=== PATIENT | female | born 1950 | race Caucasian/White ===

== ENCOUNTER 2024-10-10 13:31 | Outpatient (AMB) | payer OTHER, MEDICARE, SELFPAY ==
--- OUTSIDE RECORDS SUMMARY | 2024-10-10 13:36 | XMS_ITS | Continuity of Care Document ---
Author Organization [facility] Address [address] [address]- Care Team Providers Care Osd Clerk Name Role Phone Dena Gipson MD Primary Care Physician [phone] [id number] Date(s): 08/26/24 - 09/25/24 [facility] [address], [place] [address] Encounter Type: Triage Allergies, Adverse Reactions, Alerts Substance Criticality Severity Reaction Reaction Severity Status busPIRone Unknown Active lisinopril Persistent cough Ac tive BuSpar Dividose chest pain,d abrahan, headache Buspar dividose 15mg tablet Active Immunizations Given and Recorded Vaccine Date Status Refusal Reason influenza virus vaccine, inactivated 1 08/02/24 Gi marilee influenza virus vaccine, inactivated 08/12/23 Andres rded influenza virus vaccine, inactivated 07/12/21 Andres rded influenza virus vaccine, inactivated 08/10/20 Andres rded influenza virus vaccine, inactivated 2 07/28/18 Re corded influenza virus vaccine, inactivated 3 07/28/18 Re corded influenza virus vaccine, inactivated 4 07/31/17 Gi marilee influenza virus vaccine, inactivated 5 08/07/16 Gi marilee influenza virus vaccine, inactivated 08/08/15 Give n influenza virus vaccine, inactivated 07/20/14 Give n influenza virus vaccine, inactivated 08/11/13 Give n influenza virus vaccine, inactivated 6 08/04/12 Gi marilee influenza virus vaccine, inactivated 7 07/24/10 Gi marilee influenza virus vaccine, inactivated 8 07/20/09 Gi marilee RSV vaccine preF3, recombinant 07/08/24 Recorded SARS-CoV-2(COVID-19)mRNA-LNP vac([id number]) 08/18/23 Recorded Hepatitis A-Hepatitis B Vaccine 08/11/21 Recorded Hepatitis A-Hepatitis B Vaccine 07/12/21 Recorded pneumococcal 23-valent vaccine 9 07/11/21 Given tetanus-diphtheria toxoids (Td) 10 06/28/21 Given tetanus-diphtheria toxoids (Td) 11 10/08/11 Given tetanus-diphtheria toxoids (Td) 11/12/01 Given SARS-CoV-2 (COVID-19) mRNA-1273 vaccine 02/24/21 R ecorded SARS-CoV-2 (COVID-19) mRNA-1273 vaccine 12 01/27/21 Recorded zoster vaccine, inactivated 13 12/31/20 Recorded zoster vaccine, inactivated 08/10/20 Recorded Influenza Virus Vaccine (oldterm) 07/19/19 Recorde d Influenza Virus Vaccine (oldterm) 14 08/19/07 Give n Influenza Virus Vaccine (oldterm) 15 08/24/06 Give n pneumococcal 13-valent vaccine 16 04/15/18 Given Influenza Inactive (IM) (oldterm) 17 10/08/11 Give n Influenza Inactive (IM) (oldterm) 18 08/16/08 Give n Pneumovax 23 (oldterm) 19 10/08/11 Given influ virus vac, H1N1, inactive(oldterm) 08/27/09 Given Influenza Vaccine (oldterm) 08/11/05 Given Influenza Vaccine (oldterm) 08/30/04 Given Influenza Vaccine (oldterm) 08/03/02 Given Influenza Vaccine (oldterm) 08/23/01 Given Influenza Vaccine (oldterm) 08/21/00 Given Influenza Vaccine (oldterm) 09/27/99 Given Tetanus Toxoid Vaccine (oldterm) 20 11/16/01 Given 1Result Comment: [facility] 13217-028-44 2Result Comment: [[facility]/2018[facility] 3Result Comment: [08/09/2018] [facility] 4Result Comment: [07/31/2017] [facility] [id number] 5Result Comment: [08/07/2016] given w/out incident waiver signed 6Admin Note: VIS dated 04/19/12 7Admin Note: vis 05/28/10 8Admin Note: VIS GIVEN, 05/29/2009 9Result Comment: [facility] 4438-5607-03 Pt tolerated vaccine without incident...[place] 10Result Comment: [facility] [address]-8 Pt tolerated vaccine without incident..[place] 11Admin Note: VIS 09/05/08 12Result Comment: Done at [facility] 13Result Comment: Administered at [facility] 14Admin Note: VIS GIVEN 05/03/2007 15Admin Note: vis given 04/17/06 16Result Comment: [04/15/2018] [facility] [id number] 17Admin Note: VIS 18Admin Note: vis 2007- given 19Admin Note: VIS 02/01/09 20Admin Note: PER DR CHRISTY Medications Airsupra 90 mcg-80 mcg/inh inhalation aerosol 0 Refills, Maintenance, 08/02/24 11:07:00 AM EDT, Partial fill upon patient request if the prescription is for a schedule II opioid drug. Start Date: 08/02/24 Status: Ordered Repeat number: 1 amoxicillin-clavulanate 500 mg-125 mg oral tablet 14 each, 0 Refill(s), TAKE 1 TABLET BY MOUTH TWICE A DAY, 0 Refills, 09/19/24 9:59:00 AM EST, Partial fill upon patient request if the prescription is for a schedule II opioid drug. Start Date: 09/19/24 Status: Ordered Repeat number: 1 aspirin 81 mg oral delayed release tablet 81 mg, 1, tablet, By Mouth, Daily, # 30 tablet, Refills 0, Maintenance, 07/13/22 11:58:00 AM EDT, Partial fill upon patient request if the prescription is for a schedule II opioid drug. Start Date: 07/13/22 Status: Ordered Quantity: 30.0 Unit: tablet Repeat number: 1 biotin 1000 mcg oral tablet 1 tablet = 1,000 mcg, By Mouth, Daily, # 30 tablet, 0 Refills, Maintenance, 07/13/22 11:59:00 AM EDT, Tablet, Partial fill upon patient request if the prescription is for a schedule II opioid drug. Start Date: 07/13/22 Status: Ordered Quantity: 30.0 Unit: tablet Repeat number: 1 CALCIUM CITRATE D3 MAX TABLETS TAKE 2 TABLETS BY MOUTH TWICE DAILY Start Date: 07/13/22 Status: Ordered Repeat number: 1 diclofenac 1% topical gel See Instructions, APPLY TOPICALLY TO THE AFFECTED AREA FOUR TIMES DAILY FOR 14 DAYS. NOT TO EXCEED 16 GM DAILY/ 1 JOINT OF LOWER EXTREMITIES, # 100 Gm, 0 Refills, Maintenance, 03/18/24 5:59:00 PM EDT,Community, [facility], 7, APPLY TOPICALLY TO THE AFFECTED AREA FOUR TIMES DAILY FOR 14 DAYS. NOT TO EXCEED 16 GM DAILY/ 1 JOINT OF LOWER EXTREMITIES, 160.02, cm, 09/30/23 11:50:00 EST, Height, 84.4, kg, 09/30/23 11:50:00 EST, Dry Weight Start Date: 03/18/24 Status: Ordered Quantity: 100.0 Unit: g Repeat number: 1 docusate sodium 100 mg oral capsule 1 capsule, By Mouth, 2 times a day, # 180 capsule, 1 Refills, Maintenance, 12/03/23 5:02:00 PM EST, [facility]/pharmacy #[id number], 160.02, cm, 09/30/23 11:50:00 EST, Height, 84.4, kg, 09/30/23 11:50:00 EST, Dry Weight Start Date: 12/03/23 Stop Date: 05/31/24 Status: Ordered Quantity: 180.0 Unit: capsule Repeat number: 2 famotidine 20 mg oral tablet 20 mg, 1, tablet, By Mouth, 2 times a day, # 180 tablet, Refills 0, Maintenance, 12/03/23 5:03:00 PMEST, Partial fill upon patient request if the prescription is for a schedule II opioid drug. Start Date: 12/03/23 Status: Ordered Quantity: 180.0 Unit: tablet Repeat number: 1 Flonase 50 mcg/inh nasal spray 1 sprays, Nares, Both, 2 times a day, # 16 Gm, 0 Refills, Maintenance, 09/10/22 3:52:00 PM EST, Nasal [place], [facility]/pharmacy #[id number], Partial fill upon patient request if the prescription is for a schedule II opioid drug., 1 sprays Nares, Both 2 times a day,x14 days, 160, cm, 09/10/22 15:25:00 EST, Height, 84, kg, 08/30/21 11:34:00 EST, Dry Weight Start Date: 09/10/22 Stop Date: 09/24/22 Status: Ordered Quantity: 16.0 Unit: g Repeat number: 1 fluticasone CFC free 110 mcg/inh inhalation aerosol 0 Refills, Maintenance, 08/02/24 11:07:00 AM EDT, Partial fill upon patient request if the prescription is for a schedule II opioid drug. Start Date: 08/02/24 Status: Ordered Repeat number: 1 Juxtafit Knee-high Compression Garments(bilateral, left, right) with 2 pairs of liners Juxtafit Knee-high Compression Garments(bilateral, left, right) with 2 pairs of liners, See Instructions, # 1 kit, Refills 0, Tot. Refills 0, Maintenance, as directed, 09/19/24 10:21:00 AM EST, Supply Start Date: 09/19/24 Status: Ordered Quantity: 1.0 Unit: kit Repeat number: 1 Indication: Lymphedema, not elsewhere classified levothyroxine 125 mcg (0.125 mg) oral tablet 1 tablet, By Mouth, Daily, # 90 tablet, 1 Refills, Maintenance, 08/22/24 9:50:00 AM EST, [facility]/pharmacy #[id number], 160.02, cm, 08/02/24 10:22:00 EDT, Height, 94.6, kg, 08/02/24 10:22:00 EDT, Dry Weight Start Date: 08/22/24 Status: Ordered Quantity: 90.0 Unit: tablet Repeat number: 2 losartan 100 mg oral tablet 60 each, 0 Refill(s), 0 Refills, 09/19/24 9:52:00 AM EST, Partial fill upon patient request if the prescription is for a schedule II opioid drug. Start Date: 09/19/24 Status: Ordered Repeat number: 1 Melatonin 3 mg oral tablet 2 tablet = 6 mg, By Mouth, Daily at bedtime, 0 Refills, Maintenance, 02/28/22 12:13:00 PM EDT, Partial fill upon patient request if the prescription is for a schedule II opioid drug. Start Date: 02/28/22 Status: Ordered Repeat number: 1 metFORMIN 500 mg oral tablet 1 tablet, By Mouth, Daily, # 90 tablet, 1 Refills, Maintenance, 05/20/24 7:13:00 AM EDT, [id number], 160.02, cm, 04/20/24 9:54:00 EDT, Height, 90, kg, 04/20/24 9:54:00 EDT, Dry Weight Start Date: 05/20/24 Status: Ordered Quantity: 90.0 Unit: tablet Repeat number: 1 montelukast 10 mg oral tablet 1, tablet, By Mouth, Daily, # 90 tablet, Refills 1, Maintenance, 06/02/24 8:22:00 AM EDT, Route to Pharmacy Electronically, [id number], 160.02, cm, 04/20/24 9:54:00 EDT, Height, 90, kg, 04/20/24 9:54:00 EDT, Dry Weight Start Date: 06/02/24 Status: Ordered Quantity: 90.0 Unit: tablet Repeat number: 1 mycophenolic acid 360 mg oral delayed release tablet 1 tablet = 360 mg, By Mouth, 2 times a day, 0 Refills, Maintenance, 07/13/22 12:17:00 PM EDT, Partial fill upon patient request if the prescription is for a schedule II opioid drug. Start Date: 07/13/22 Status: Ordered Repeat number: 1 rosuvastatin 20 mg oral tablet 1 tablet = 20 mg, By Mouth, Daily, # 90 tablet, 0 Refills, Maintenance, 03/21/22 12:25:00 PM EDT, Tablet, Partial fill upon patient request if the prescription is for a schedule II opioid drug. Start Date: 03/21/22 Status: Ordered Quantity: 90.0 Unit: tablet Repeat number: 1 tacrolimus 1 mg oral capsule 0.5 capsule = 0.5 mg, By Mouth, Every 12 hours, # 180 capsule, 0 Refills, Maintenance, 07/13/22 11:56:00 AM EDT, Capsule, Partial fill upon patient request if the prescription is for a schedule II opioid drug. Start Date: 07/13/22 Status: Ordered Quantity: 180.0 Unit: capsule Repeat number: 1 Tiadylt ER 360 mg/24 hours oral capsule, extended release 1 capsule = 360 mg, By Mouth, Daily, 0 Refills, Maintenance, 02/28/22 12:13:00 PM EDT, Partial fill upon patient request if the prescription is for a schedule II opioid drug. Start Date: 02/28/22 Status: Ordered Repeat number: 1 valganciclovir 450 mg oral tablet 450 mg, 1, tablet, By Mouth, 2 times a day with meals, Refills 0, Maintenance, 11/12/22 5:09:00 PM EST, Partial fill upon patient request if the prescription is for a schedule II opioid drug. Start Date: 11/12/22 Status: Ordered Repeat number: 1 venlafaxine 75 mg oral tablet 1 tablet = 75 mg, By Mouth, Daily, # 90 tablet, 1 Refills, Maintenance, 09/24/24 12:22:00 PM EST, [facility]/pharmacy #[id number], switched from 2x37.5 mg, 160.02, cm, 08/02/24 10:22:00 EDT, Height, 94.6, kg, 08/02/24 10:22:00 EDT, Dry Weight Start Date: 09/24/24 Stop Date: 03/23/25 Status: Ordered Quantity: 90.0 Unit: tablet Repeat number: 2 Vitamin C 500 mg oral tablet 1 tablet = 500 mg, By Mouth, 2 times a day, 0 Refills, Maintenance, 02/28/22 12:13:00 PM EDT, Partial fill upon patient request if the prescription is for a schedule II opioid drug. Start Date: 02/28/22 Status: Ordered Repeat number: 1 vitamin E 400 iu oral capsule 1 capsule = 400 International_Units, By Mouth, Daily, # 30 capsule, 0 Refills, Maintenance, 07/13/2212:02:00 PM EDT, Capsule, Partial fill upon patient request if the prescription is for a schedule II opioid drug. 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 Confirmed Active Chronic insomnia Confirmed Active Degenerative disc disease, lumbar Confirmed Active Degenerative myopia Confirmed Active Gastroparesis Confirmed Active S/P orthotopic heart transplant Confirmed Active HFrEF (heart failure with reduced ejection fraction) Confirmed Active Hip pain Confirmed Active Hyperlipidemia Confirmed Active Hypothyroidism Confirmed Active Lower back pain Confirmed Active Osteopenia Confirmed Active Primary idiopathic cardiomyopathy 4, 5, 6, 7, 8, 9 Confirmed Active Severe obesity (BMI 35.0-39.9) with comorbidity Confirmed Active Complex sleep apnea syndrome 10, 11, 12 Confirmed Active 1MRI of brain had a few nonmspecific subcentimeter foci of T2 prolongation in left cerebral white matter 2seeing Dr Morgan of neuro, nl brain MRI 06/12/[address] Singh 4cardiac MRI done 10/28/13 to eval ? scar- EF 36%,LV with m ild- mod dilation, no focal wall motion abnormality, low nl to mildly thinned LV, no evidence of infarct 5nuclear stress test 08/10/13 showed no ischemia, EF44%, scar on inferior wall, mid ventricle to apex 6echo 05/25/14- ischemic cardiomyopathy, ER 40-45%, distal septal and apical hypokinesis, mild MR, tr TR, and tr pulmonic valve regurg 7echo 01/2013- EF 40-50%, no sig change vs 12/2007/- nl nuclear stress test, LVEF 50%(pt admitted with CP) 9echo 12/24-LVEF 50-55%, tr MR and TR, LV mildly dilated, no LVH, no wall motion abnormality, no diastolic dysfunction. prior echo 11/23 with LVEF 20% cardiac cath 04/21-no CAD 10having problems with mask, delclining f/u at sleep clinic(see january [facility] note) 11has complex sleep apnea, referred to sleep clinic 12titration study 09/12/14 Social History Social History Type Response Smoking Status Never smoker; Tobacc o user in household: Yes entered on: 04/02/18 Sex Sex Representation Female (finding) Patient Care team information Care Team Personnel Name: Jasmyne Cueva RN Position: S RN Member Role: Primary Care Nurse Name: Ericka Salcedo RN Position: [facility] RN Member Role: Primary Care Nurse Name: Katrin Brian Position: [facility] RN Supv Member Role: Primary Care Nurse Name: Raissa Garcia NP Position: [facility] Associate Professional Member Role: Lifetime Consulting Provider Address: [address] [facility] [place] [address]- [place] [employer]: Name: Dena Gipson MD Position: [facility] Physician - Primary Care Member Role: PCP Address: [address] [facility] [place] [address]- [place] [employer]: Name: Hilda Levine RN Position: [facility] Treasury Management Sales Consultant Member Role: Primary Care Nurse Name: Mae Kaiser RN Position: [facility] RN Member Role: Primary Care Nurse Name: Jerrica Salinas RN Position: [facility] RN Member Role: Primary Care Nurse Name: Gerardo Petty RN Position: [facility] RN Member Role: Primary Care Nurse Name: Kamini Membreno RN Position: [facility] RN Member Role: Primary Care Nurse Name: Matthias Enamorado MD Position: [facility] Outreach Member Role: Lifetime Consulting Physician Address: [address] [facility] [place] [place] [address]- [place] Tele[employer]: Name: Kathy Rodney RN Position: [facility] SN RN Member Role: Primary Care Nurse Name: Huma Rogers RN Position: [facility] RN Member Role: Primary Care Nurse Name: Nirali Goodwin RN Position: [facility] RN Member Role: Primary Care Nurse Name: Ruth Murguia RN Position: [facility] RN Member Role: Primary Care Nurse Care Team Related Persons Name: GEE RADFORD Name: JONATHAN RADFORD Insurance Providers Guarantor name: ANTONIO RADFORD Health Plan Information #: 1 Payer: NA Member Number: NA Policy Number: NA Group Number: NA
--- OUTSIDE RECORDS SUMMARY | 2024-10-10 13:36 | XMS_ITS | Continuity of Care Document ---
Author Organization [facility] Address [address] [address]- Care Team Providers Care Freight Trucker Name Role Phone Dena Gipson MD Primary Care Physician [id number] Date(s): 08/24/24 - 09/23/24 [facility] [address] [place], [place] [address] Encounter Type: Triage Allergies, Adverse Reactions, Alerts [...] RSV vaccine preF3, recombinant 07/08/24 Recorded SARS-CoV-2(COVID-19)mRNA-LNP vac([id number]) 08/18/23 Recorded Hepatitis A-Hepatitis B Vaccine 08/11/21 [...] Vaccine (oldterm) 20 11/16/01 Given 1Result Comment: [facility] [id number] 2Result Comment: [facility]/2018] [facility] 3Result Comment: [08/09/2018] [facility] 4Result Comment: [07/31/2017] [facility] [id number] 5Result Comment: [08/07/2016] given w/out incident waiver signed 6Admin Note: VIS dated 04/19/12 7Admin Note: vis 05/28/10 8Admin Note: VIS GIVEN, 05/29/2009 9Result Comment: [facility] [id number] Pt tolerated vaccine without incident...[facility] 10Result Comment: [facility] [id number] Pt tolerated vaccine without incident..[place] 11Admin Note: VIS 09/05/08 12Result Comment: Done at [facility] 13Result Comment: Administered at [facility] 14Admin Note: VIS GIVEN 05/03/2007 15Admin Note: vis given 04/17/06 16Result Comment: [04/15/2018] [facility] [id number] 17Admin Note: VIS 18Admin Note: vis 2007- [...] Refills, Maintenance, 03/18/24 5:59:00 PM EDT,Community, [facility], 7, APPLY TOPICALLY TO [...] 1 Refills, Maintenance, 12/03/23 5:02:00 PM EST, [facility]/pharmacy #[id number], 160.02, cm, 09/30/23 11:50:00 EST, Height, [...] Refills, Maintenance, 09/10/22 3:52:00 PM EST, Nasal [place], [facility]/pharmacy #[id number], Partial fill upon patient request if [...] 1 Refills, Maintenance, 08/22/24 9:50:00 AM EST, [facility]/pharmacy #[id number], 160.02, cm, 08/02/24 10:22:00 EDT, Height, [...] 1 Refills, Maintenance, 05/20/24 7:13:00 AM EDT, [facility], 160.02, cm, 04/20/24 9:54:00 EDT, Height, 90, kg, 04/20/24 9:54:00 EDT, Dry Weight Start Date: 05/20/24 Status: Ordered Quantity: 90.0 Unit: tablet Repeat number: 1 montelukast 10 mg oral tablet 1, tablet, By Mouth, Daily, # 90 tablet, Refills 1, Maintenance, 06/02/24 8:22:00 AM EDT, Route to Pharmacy Electronically, [facility], 160.02, cm, 04/20/24 9:54:00 EDT, Height, 90, [...] 1 Refills, Maintenance, 09/24/24 12:22:00 PM EST, [facility]/pharmacy #[id number], switched from 2x37.5 mg, 160.02, cm, [...] Primary Care Nurse Name: Katrin Brian Position: [facility] RN Supv Member Role: Primary Care Nurse Name: Raissa Garcia NP Position: [facility] Associate Professional Member Role: Lifetime Consulting Provider Address: [address] [facility] [place] [address]- [place] Tele[employer]: Name: Dena Gipson MD Position: [facility] Physician - Primary Care Member Role: PCP Address: [address] [facility] [place] [address]- [place] Tele[employer]: Name: Hilda Levine RN Position: [facility] Licensed Tax Consultant Member Role: Primary Care Nurse Name: Mae Kaiser RN Position: [facility] RN Member Role: Primary Care Nurse Name: Jerrica Salinas RN Position: [facility] RN Member Role: Primary Care Nurse Name: Gerardo Petty RN Position: [facility] RN Member Role: Primary Care Nurse Name: Kamini Membreno RN Position: [facility] RN Member Role: Primary Care Nurse Name: Matthias Enamorado MD Position: [facility] Outreach Member Role: Lifetime Consulting Physician Address: [address] [facility] [place] [address]- [place] Tele[employer]: Name: Kathy Rodney RN Position: [facility] SN RN Member Role: Primary Care Nurse Name: Huma Rogers RN Position: [facility] RN Member Role: Primary Care Nurse Name: Nirali Goodwin RN Position: [facility] RN Member Role: Primary Care Nurse Name: Ruth Murguia RN Position: [facility] RN Member Role: Primary Care Nurse Care Team Related Persons Name: GEE RADFORD Name: JONATHAN RADFORD Insurance Providers Guarantor name: ANTONIO RADFORD Health Plan Information #: 1 Payer: NA Member Number: NA Policy Number: NA Group Number: NA
--- OUTSIDE RECORDS SUMMARY | 2024-10-10 13:37 | XMS_ITS | Continuity of Care Document ---
Author Organization [facility] Address [address] [address]- Care Team Providers Care Manager City Name Role Phone Dena Gipson MD Primary Care Phys[id number] Date(s): 08/22/24 - 09/21/24 [facility] [address] [place], [place] [address] Encounter Type: Triage Allergies, Adverse [...] RSV vaccine preF3, recombinant 07/08/24 Recorded SARS-CoV-2(COVID-19)mRNA-LNP vac([id number]) 08/18/23 Recorded Hepatitis A-Hepatitis B Vaccine 08/11/21 [...] Vaccine (oldterm) 20 11/16/01 Given 1Result Comment: [facility] [id number] 2[facility] Comment[facility] 3Result Comment: [08/09/2018] [facility] 4Result Comment: [07/31/2017] [facility] [id number] 5Result Comment: [08/07/2016] given w/out incident waiver signed 6Admin Note: VIS dated 04/19/12 7Admin Note: vis 05/28/10 8Admin Note: VIS GIVEN, 05/29/2009 9Result Comment: [facility] 0218-0584-02 Pt tolerated vaccine without incident...[place] 10Result Comment: [facility] [address]-5 Pt tolerated vaccine without incident..NH 11Admin Note: VIS 09/05/08 12Result Comment: Done at [facility] 13Result Comment: Administered at [facility] 14Admin Note: VIS GIVEN 05/03/2007 15Admin Note: vis given 04/17/06 16Result Comment: [04/15/2018] [facility] [id number] 17Admin Note: VIS 18Admin Note: vis 2007- [...] Refills, Maintenance, 03/18/24 5:59:00 PM EDT,Community, [facility], 7, APPLY TOPICALLY TO [...] 1 Refills, Maintenance, 12/03/23 5:02:00 PM EST, [facility]/pharmacy #[id number], 160.02, cm, 09/30/23 11:50:00 [...] Refills, Maintenance, 09/10/22 3:52:00 PM EST, Nasal [place], [facility]/pharmacy #[id number], Partial fill upon patient [...] 1 Refills, Maintenance, 08/22/24 9:50:00 AM EST, [facility]/pharmacy #[id number], 160.02, cm, 08/02/24 10:22:00 [...] 1 Refills, Maintenance, 05/20/24 7:13:00 AM EDT, [id number], 160.02, cm, 04/20/24 9:54:00 EDT, Height, 90, kg, 04/20/24 9:54:00 EDT, Dry Weight Start Date: 05/20/24 Status: Ordered Quantity: 90.0 Unit: tablet Repeat number: 1 montelukast 10 mg oral tablet 1, tablet, By Mouth, Daily, # 90 tablet, Refills 1, Maintenance, 06/02/24 8:22:00 AM EDT, Route to Pharmacy Electronically, [id number], 160.02, cm, 04/20/24 9:54:00 EDT, Height, 90, [...] 1 Refills, Maintenance, 09/24/24 12:22:00 PM EST, [facility]/pharmacy #[id number], switched from 2x37.5 mg, [...] RN Member Role: Primary Care Nurse Name: HemantchanaKatrin Position: [facility] RN Supv Member Role: Primary Care Nurse Name: Raissa Garcia NP Position: [facility] Associate Professional Member Role: Lifetime Consulting Provider Address: [address] [facility] [place] [place] [address]- [place] Tele[employer]: Name: Dena Gipson MD Position: [facility] Physician - Primary Care Member Role: PCP Address: [address] [facility] [place] [address]- [place] Telecom: Name: Hilda Levine RN Position: [facility] Ha[employer]age Engine Operator Member Role: Primary Care Nurse Name: Mae Kaiser RN Position: [facility] RN Member Role: Primary Care Nurse Name: Jerrica Salinas RN Position: [facility] RN Member Role: Primary Care Nurse Name: Gerardo Petty RN Position: [facility] RN Member Role: Primary Care Nurse Name: Kamini Membreno RN Position: [facility] RN Member Role: Primary Care Nurse Name: Matthias Enamorado MD Position: [facility] Renal MD Member Role: Lifetime Consulting Physician Address: [address] [facility] [address] [facility] [place] [address]- [place] Telecom: Name: Kathy Rodney RN Position: [facility] RN Member Role: Primary Care Nurse Name: Huma Rogers RN Position: [facility] RN Member Role: Primary Care Nurse Name: Nirali Goodwin RN Position: [facility] RN Member Role: Primary Care Nurse Name: Ruth Murguia RN Position: [facility] RN Member Role: Primary Care Nurse Care Team Related Persons Name: GEE RADFORD Name: JONATHAN RADFORD Insurance Providers Guarantor name: ANTONIO RADFORD Health Plan Information #: 1 Payer: NA Member Number: NA Policy Number: NA Group Number: NA
--- OUTSIDE RECORDS SUMMARY | 2024-10-10 13:37 | XMS_ITS | Continuity of Care Document ---
Author Organization 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 [address] [place], [place] [address] Encounter Type: Triage Allergies, Adverse Reactions, Alerts Substance Criticality Severity Reaction Reaction Severity Status busPIRone Unknown Active lisinopril Persistent cough Ac tive Macrobid nausea & vomiting Ac tive BuSpar Dividose chest pain,d abrahan, [...] RSV vaccine preF3, recombinant 07/08/24 Recorded SARS-CoV-2(COVID-19)mRNA-LNP vac([id number]) 08/18/23 Recorded Hepatitis A-Hepatitis B Vaccine 08/11/21 [...] Vaccine (oldterm) 20 11/16/01 Given 1Result Comment: [facility] [id number] 2Result Comment: [facility] 3Result Comment: [facility] 4Result Comment: [07[facility]/2017] [facility] [id number] 5Result Comment: [08/07/2016] given w/out incident waiver signed 6Admin Note: VIS dated 04/19/12 7Admin Note: vis 05/28/10 8Admin Note: VIS GIVEN, 05/29/2009 9Result Comment: [facility] [id number] Pt tolerated vaccine without incident...NH 10Result Comment: [facility] [address]-6 Pt tolerated vaccine without incident..NH 11Admin Note: VIS 09/05/08 12Result Comment: Done at [facility] 13Result Comment: Administered at [facility] 14Admin Note: VIS GIVEN 05/03/2007 15Admin Note: vis given 04/17/06 16Result Comment: [04/15/2018] [facility] [id number] 17Admin Note: VIS 18Admin Note: vis 2007- given 19Admin Note: VIS 02/01/09 20Admin Note: PER DR CHRISTY Medications Airsupra 90 mcg-80 mcg/inh inhalation aerosol 0 Refills, Maintenance, 08/02/24 11:07:00 AM EDT, Partial fill upon patient request if the prescription is for a schedule II opioid drug. Start Date: 08/02/24 Status: Ordered Repeat number: 1 ALPRAZolam 0.5 mg oral tablet 0.5 mg, 1, tablet, By Mouth, 3 times a day, PRN, # 21 tablet, Refills 0, Tot. Refills 0, Maintenance, as needed for anxiety, 10/04/24 1:04:00 PM EST, Route to Pharmacy Electronically, [facility]/pharmacy #[id number], Partial fill upon patient request if the prescription is for a schedule II opioid drug., 160.02, cm, 10/04/24 11:17:00 EST, Height, 95.9, kg, 10/04/24 11:17:00 EST, Dry Weight Start Date: 10/04/24 Status: Ordered Quantity: 21.0 Unit: tablet Repeat number: 1 aspirin 81 mg oral [...] JOINT OF LOWER EXTREMITIES, # 100 Gm, 1 Refills, Maintenance, 10/04/24 11:32:00 AM EST, [facility]/pharmacy #[id number], 7, APPLY TOPICALLY TO THE AFFECTED AREA FOUR TIMES DAILY FOR 14 DAYS. NOT TO EXCEED 16 GM DAILY/ 1 JOINT OF LOWER EXTREMITIES, 160.02, cm, 10/04/24 11:17:00 EST, Height, 95.9, kg, 10/04/24 11:17:00 EST, Dry Weight Start Date: 10/04/24 Status: Ordered Quantity: 100.0 Unit: g Repeat number: 2 docusate sodium 100 mg oral capsule 1 capsule, By Mouth, 2 times a day, # 180 capsule, 1 Refills, Maintenance, 12/03/23 5:02:00 PM EST, [facility]/pharmacy #[id number], 160.02, cm, 09/30/23 11:50:00 EST, Height, [...] Refills, Maintenance, 09/10/22 3:52:00 PM EST, Nasal [place], [facility]/pharmacy #[id number], Partial fill upon patient request if [...] Date: 08/02/24 Status: Ordered Repeat number: 1 Gemtesa 75 mg oral tablet 0 Refills, Maintenance, 10/04/24 11:30:00 AM EST, Partial fill upon patient request if the prescription is for a schedule II opioid drug. Start Date: 10/04/24 Status: Ordered Repeat number: 1 Juxtafit Knee-high [...] 1 Refills, Maintenance, 08/22/24 9:50:00 AM EST, [facility]/pharmacy #[id number], 160.02, cm, 08/02/24 10:22:00 EDT, Height, [...] 1 Refills, Maintenance, 05/20/24 7:13:00 AM EDT, [facility] [address], 160.02, cm, 04/20/24 9:54:00 EDT, Height, 90, kg, 04/20/24 9:54:00 EDT, Dry Weight Start Date: 05/20/24 Status: Ordered Quantity: 90.0 Unit: tablet Repeat number: 1 montelukast 10 mg oral tablet 1, tablet, By Mouth, Daily, # 90 tablet, Refills 1, Maintenance, 06/02/24 8:22:00 AM EDT, Route to Pharmacy Electronically, [facility] [address], 160.02, cm, 04/20/24 9:54:00 EDT, Height, 90, [...] 1 Refills, Maintenance, 09/24/24 12:22:00 PM EST, [facility]/pharmacy #[id number], switched from 2x37.5 mg, 160.02, cm, [...] 01/2013- EF 40-50%, no sig change vs 12/2007- nl nuclear stress test, LVEF 50%(pt admitted [...] Team Personnel Name: Jasmyne Cueva RN Position: [facility] RN Member Role: Primary Care Nurse Name: Ericka Salcedo RN Position: [facility] RN Member Role: Primary Care Nurse Name: Katrin Brian Position: [facility] RN Supv Member Role: Primary Care Nurse Name: Raissa Garcia NP Position: [facility] Associate Professional Member Role: Lifetime Consulting Provider Address: [address] [place] [address] [address] [facility] [place] [address]- [place] Telecom: Name: Dena Gipson MD Position: [facility] Physician - Primary Care Member Role: PCP Address: [address] [facility] [place] [address]- [place] Telecom: Name: Hilda Levine RN Position: [facility] Test Director Member Role: Primary Care Nurse Name: Mae Kaiser RN Position: [facility] RN Member Role: Primary Care Nurse Name: Jerrica Salinas RN Position: [facility] RN Member Role: Primary Care Nurse Name: Gerardo Petty RN Position: [facility] RN Member Role: Primary Care Nurse Name: Kamini Membreno RN Position: [facility] RN Member Role: Primary Care Nurse Name: Matthias Enamorado MD Position: [facility] Outreach Member Role: Lifetime Consulting Physician Address: [address] [facility] [address] [facility] [place] [address]- [place] Telecom: Name: Kathy Rodney RN Position: [facility] RN Member Role: Primary Care Nurse Name: Huma Rogers RN Position: [facility] RN Member Role: Primary Care Nurse Name: Nirali Goodwin RN Position: [facility] RN Member Role: Primary Care Nurse Name: Blade DEAN, Ruth Cassidy Position: S RN Member Role: Primary Care Nurse Care Team Related Persons Name: GEE RADFORD Name: JONATHAN RADFORD Insurance Providers Guarantor name: ANTONIO RADFORD Health Plan Information #: 1 Payer: NA Member Number: NA Policy Number: NA Group Number: NA
--- OUTSIDE RECORDS SUMMARY | 2024-10-10 13:37 | XMS_ITS | Continuity of Care Document ---
Author Organization [facility] Address [address] [place] [id number]- Care Team Providers Care Automatic Blocker Name Role Phone Dena Gipson MD Primary Care Physician [id number] Date(s): 09/19/24 - 09/26/24 [facility] [address] [place] [id number] Encounter Diagnosis Leg swelling(Discharge Diagnosis) - 09/19/24 Attending Physician: Anne Marie Thomas NP Referring Physician: Dena Gipson MD Encounter Type: Office Visit Allergies, Adverse Reactions, Alerts Substance Criticality Severity [...] RSV vaccine preF3, recombinant 07/08/24 Recorded SARS-CoV-2(COVID-19)mRNA-LNP vac([id number]) 08/18/23 Recorded Hepatitis A-Hepatitis B Vaccine 08/11/21 [...] Vaccine (oldterm) 20 11/16/01 Given 1Result Comment: [facility] 54712-596-21 2Result Comment: [08/11/2018] [facility] 3Result Comment: [08/09/2018] [facility] 4Result Comment: [07/31/2017] [facility] [id number] 5Result Comment: [08/07/2016] given w/out incident waiver signed 6Admin Note: VIS dated 04/19/12 7Admin Note: vis 05/28/10 8Admin Note: VIS GIVEN, 05/29/2009 9Result Comment: [facility] 8071-9275-50 Pt tolerated vaccine without incident...[facility] 10Result Comment: [facility] [address]-8 Pt tolerated vaccine without incident..[facility] 11Admin Note: VIS 09/05/08 12Result Comment: Done at [facility] 13Result Comment: Administered at [facility] 14Admin Note: VIS GIVEN 05/03/2007 15Admin Note: vis given 04/17/06 16Result Comment: [04/15/2018] [facility] [id number] 17Admin Note: VIS 18Admin Note: vis 2007- [...] Daily, # 30 tablet, Refills 0, Maintenance, 9/25/22 11:58:00 AM EDT, Partial fill upon patient [...] Gm, 0 Refills, Maintenance, 03/18/24 5:59:00 PM EDT,[facility], [facility], 7, APPLY TOPICALLY TO THE [...] 1 Refills, Maintenance, 12/03/23 5:02:00 PM EST, [facility]/pharmacy #[id number], 160.02, cm, 09/30/23 [...] Refills, Maintenance, 09/10/22 3:52:00 PM EST, [place], [facility]/pharmacy #[id number], Partial fill upon [...] 1 Refills, Maintenance, 08/22/24 9:50:00 AM EST, [facility]/pharmacy #[id number], 160.02, cm, 08/02/24 [...] 1 Refills, Maintenance, 05/20/24 7:13:00 AM EDT, [id number], 160.02, cm, 04/20/24 9:54:00 EDT, Height, 90, kg, 04/20/24 9:54:00 EDT, Dry Weight Start Date: 05/20/24 Status: Ordered Quantity: 90.0 Unit: tablet Repeat number: 1 montelukast 10 mg oral tablet 1, tablet, By Mouth, Daily, # 90 tablet, Refills 1, Maintenance, 06/02/24 8:22:00 AM EDT, Route to Pharmacy Electronically, [id number], 160.02, cm, 04/20/24 9:54:00 EDT, Height, 90, [...] 1 Refills, Maintenance, 09/24/24 12:22:00 PM EST, [facility]/pharmacy #[id number], switched from 2x37.5 [...] referred to sleep clinic 12titration study 09/12/14 Diagnosis Diagnosis Type Effective Dates Health Status Cl inical Service Informant Leg swelling Discharge Diagnosis 09/19/24 Vital Signs Most recent to oldest [Reference Range]: 1 Height 160.02 cm (09/19/24 10:00 AM) Weight 95.8 kg (09/19/24 10:00 AM) Oxygen Saturation [94-100 %] 97 % (09/19/24 10:00 AM) Pulse Rate [55-90 bpm] 104 bpm *H* (09/19/24 10:00 AM) Body Mass Index [18.5-24.99 kg/m2] 37.41 kg/m2 *>HHI* (09/19/24 10:00 AM) Blood Pressure [90-138/55-84 mm Hg] 120/ 68mm Hg (09/19/24 10:00 AM) Mode of Delivery (Oxygen) Room air (09/19/24 10:00 AM) Blood pressure sites Arm, left (09/19/24 10:00 AM) Weight Obtained Via Bed scale (09/19/24 10:00 AM) Social History Social History Type Response Smoking Status Never smoker; Tobacc o user in household: Yes entered on: 04/02/18 Sex Sex Representation Female (finding) Note * Delia Souza: PERFORM Event Display: Patient Education/Instruction Authored Date: Ambulatory Adult Visit Summary [facility] [address] [place] [address] Name: ANTONIO RADFORD : 1950?? Visit: 09/19/2024 09:50?? Ambulatory Visit Instructions ?? Your Care Team Primary Care Provider Dena Gipson MD? This Visit Provider Anne Marie Thomas NP Your Diagnosis Leg swelling Lymphedema Vitals Signs Pulse Rate:??104 bpm??High Height: 160.02 cm Systolic Blood Pressure: 120 mm Hg Weight: 95.8 kg Diastolic Blood Pressure: 68 mm Hg Body Mass Index:??37.41 kg/m2??Critical Oxygen Saturation: 97 % Body surface area: 2.06 What to do next Scheduled Follow-Up Appointments Thursday 11:00 AM EST ?? With: Dena Gipson MD Where: [facility] [address] [place] [address]- Status: Pending Follow-Up Appointments Follow up Appointment - Ordered?-- 3 months, VIB and follow up [place] with Anne Marie, 09/19/24 10:20:00 EST Future Orders Complete Urinalysis (Urinalysis Complete) - Routine, Once, 01/15/24 18:21:00 EDT, [facility], Urine?? Medications The list below reflects the information in our records and provided by you today along with any changes made during this visit. Please continue your medications until treatment is completed or stopped by your provider. If this is different from the information you have or there are other questions,please contact the prescribing provider. What How Much When Why Instructions New Durable Medical Equipment (Juxtafit Knee-high Compression Garments(bilateral, left, right) with 2 pairs of liners) See instructions Lymphedema as directed ?? Printed Prescription Unchanged albuterol-budesonide (Airsupra 90 mcg-80 mcg/ inh inhalation aerosol) Unchanged Amoxicillin-Clavulanate (amoxicillin-clavulanate 500 mg-125 mg oral tablet) 14 each, 0 Refill(s), TAKE 1 TABLET BY MOUTH TWICE A DAY ?? Unchanged Ascorbic Acid (Vitamin C 500 mg oral tablet) 1 tab(s) Oral Twice a day Unchanged Aspirin (aspirin 81 mg oral delayed release tablet) 1 tab(s) Oral Daily Unchanged Biotin (biotin 1000 mcg oral tablet) 1 tab(s) Oral Daily Unchanged Diclofenac Topical (diclofenac 1% topical gel) See instructions APPLY TOPICALLY TO THE AFFECTED AREA FOUR TIMES DAILY FOR 14 DAYS. NOT TO EXCEED 16 GM DAILY/ ??1 JOINT OF LOWER EXTREMITIES ?? Unchanged Diltiazem (Tiadylt ER 360 mg/ 24 hours oral capsule, extended release) 1 capsule Oral Daily Unchanged Docusate (docusate sodium 100 mg oral capsule) 1 capsule Oral Twice a day Duration: 90 Days Unchanged Famotidine (famotidine 20 mg oral tablet) 1 tab(s) Oral Twice a day Unchanged Fluticasone (fluticasone CFC free 110 mcg/ inh inhalation aerosol) Unchanged Fluticasone Nasal (Flonase 50 mcg/ inh nasal spray) 1 spray(s) Nares, Both Twice a day Duration: 14 Days Unchanged Levothyroxine (levothyroxine 125 mcg (0.125 mg) oral tablet) 1 tab(s) Oral Daily Unchanged Losartan (losartan 100 mg oral tablet) 60 each, 0 Refill(s) ?? Unchanged Melatonin (Melatonin 3 mg oral tablet) 2 tab(s) Oral Daily at Bedtime Unchanged Metformin (metFORMIN 500 mg oral tablet) 1 tab(s) Oral Daily Unchanged Miscellaneous Rx (CALCIUM CITRATE D3 MAX TABLETS) TAKE 2 TABLETS BY MOUTH TWICE DAILY ?? Unchanged Montelukast (montelukast 10 mg oral tablet) 1 tab(s) Oral Daily Unchanged Mycophenolate Sodium (mycophenolic acid 360 mg oral delayed release tablet) 1 tab(s) Oral Twice a day Unchanged Rosuvastatin (rosuvastatin 20 mg oral tablet) 1 tab(s) Oral Daily Unchanged Tacrolimus (tacrolimus 1 mg oral capsule) 0.5 capsule Oral Every 12 hours Unchanged ValGANCiclovir (valganciclovir 450 mg oral tablet) 1 tab(s) Oral Two times a day with meals Unchanged Venlafaxine (venlafaxine 75 mg oral tablet) 1 tab(s) Oral Daily Duration: 90 Days Unchanged Vitamin E (vitamin E 400 iu oral capsule) 1 capsule Oral Daily Medications and Immunizations Administered Medications Given During Visit No medications given during this visit.?? Allergies (NKA means No Known Allergies) BuSpar Dividose??(chest pain,dizzy, headache, Buspar dividose 15mg tablet) busPIRone??(Unknown) lisinopril??(Persistent cough) Common Emergency Awareness Tips IS IT A STROKE? Act FAST and Check for these signs: FACE Does the face look uneven? ARM Does one arm drift down? SPEECH Does their speech sound strange? TIME Call at any sign of stroke ?? Heart Attack Signs Chest discomfort: Most heart attacks involve discomfort in the center of the chest and lasts more than a few minutes, or goes away and comes back. It can feel like uncomfortable pressure, squeezing, fullness or pain. Discomfort in upper body: Symptoms can include pain or discomfort in one or both arms, back, neck, jaw or stomach. Shortness of breath: With or without discomfort. Other signs: Breaking out in a cold sweat, nausea, or lightheaded. Remember, MINUTES DO MATTER. If you experience any of these heart attack warning signs, call to get immediate medical attention! ?? Smoking can increase your chances of developing chronic health problems and can cause harmful effects to other family members in your house. If you smoke, you are strongly encouraged to quit. Please call [employer] [facility] at [phone] or [phone] cc. ([phone]) or log in to [email or web address] for referrals to smoking cessation programs. ?? The National Suicide Prevention Hotline is available 11/05 if you or someone you know needs to find a reason to keep living. By calling 2-972-365-Vital Access (7887) you'll be connected to a skilled, trained counselor at a crisis center in your area. [facility] Portal You can view and manage your care through the patient portal or by using a health care viviana of your choosing. [employer] is a website that allows you to securely view your medical information including your hospital discharge summary, office visit summaries, medications and follow-up visits. You can also request appointments, renew medications, and request access to your medical information using a health care viviana of your choosing, or just ask a question. You can enroll at [email or web address] or register during your next office visit. [facility], in keeping with [facility] guidance, no longer requires face masks for staff, patientsor visitors in most situations. Similiar to time spent indoors at other locations, there is the chance that you were exposed to repiratory viruses during your time with us (such as flu or COVID-19). If you develop symptoms concerning for a viral respiratory infection, please seek testing (and treatment if indicated) from your medical provider or home test kit. ?? Disclaimer: The information provided is of a general nature and is intended to be used in conjunction with the recommendations and advice of your health care practitioner. Every effort has been made to ensure that the information provided is accurate and complete at the time it is provided to you however, as your needs change, or, as new information becomes available, different or additional instructions may be required. ?? If you have questions, please consult with your primary care provider or pharmacist, as appropriate. This information is not intended to serve as substitution for assessment and evaluation by a qualified health care provider. If you do not have a primary care provider, you may find a [facility] provider by calling [employer] Link at [phone]. * Delmy Fregoso: PERFORM Event Display: Patient Education/Instruction Authored Date: Ambulatory Adult Visit Summary [facility] [address] [facility] [facility] [address] [place] [address] Name: ANTONIO RADFORD : 1950?? Visit: 09/19/2024 09:50?? Ambulatory Visit Instructions ?? Your Care Team Primary Care Provider Leonela ARCHER, Dena Fuchs? This Visit Provider William GIRARD, Anne Marie Your Diagnosis Leg swelling Lymphedema Vitals Signs Pulse Rate:??104 bpm??High Height: 160.02 cm Systolic Blood Pressure: 120 mm Hg Weight: 95.8 kg Diastolic Blood Pressure: 68 mm Hg Body Mass Index:??37.41 kg/m2??Critical Oxygen Saturation: 97 % Body surface area: 2.06 What to do next Scheduled Follow-Up Appointments Thursday 11:00 AM EST ?? With: Dena Gipson MD Where: [facility] [address] [place] [address]- Status: Pending Follow-Up Appointments Follow up Appointment - Ordered?-- 3 months, VIB and follow up [place] with Anne Marie, 09/19/24 10:20:00 EST Future Orders Complete Urinalysis (Urinalysis Complete) - Routine, Once, 01/15/24 18:21:00 EDT, [facility], Urine?? Medications The list below reflects the information in our records and provided by you today along with any changes made during this visit. Please continue your medications until treatment is completed or stopped by your provider. If this is different from the information you have or there are other questions,please contact the prescribing provider. What How Much When Why Instructions New Durable Medical Equipment (Juxtafit Knee-high Compression Garments(bilateral, left, right) with 2 pairs of liners) See instructions Lymphedema as directed ?? Printed Prescription Unchanged albuterol-budesonide (Airsupra 90 mcg-80 mcg/ inh inhalation aerosol) Unchanged Amoxicillin-Clavulanate (amoxicillin-clavulanate 500 mg-125 mg oral tablet) 14 each, 0 Refill(s), TAKE 1 TABLET BY MOUTH TWICE A DAY ?? Unchanged Ascorbic Acid (Vitamin C 500 mg oral tablet) 1 tab(s) Oral Twice a day Unchanged Aspirin (aspirin 81 mg oral delayed release tablet) 1 tab(s) Oral Daily Unchanged Biotin (biotin 1000 mcg oral tablet) 1 tab(s) Oral Daily Unchanged Diclofenac Topical (diclofenac 1% topical gel) See instructions APPLY TOPICALLY TO THE AFFECTED AREA FOUR TIMES DAILY FOR 14 DAYS. NOT TO EXCEED 16 GM DAILY/ ??1 JOINT OF LOWER EXTREMITIES ?? Unchanged Diltiazem (Tiadylt ER 360 mg/ 24 hours oral capsule, extended release) 1 capsule Oral Daily Unchanged Docusate (docusate sodium 100 mg oral capsule) 1 capsule Oral Twice a day Duration: 90 Days Unchanged Famotidine (famotidine 20 mg oral tablet) 1 tab(s) Oral Twice a day Unchanged Fluticasone (fluticasone CFC free 110 mcg/ inh inhalation aerosol) Unchanged Fluticasone Nasal (Flonase 50 mcg/ inh nasal spray) 1 spray(s) Nares, Both Twice a day Duration: 14 Days Unchanged Levothyroxine (levothyroxine 125 mcg (0.125 mg) oral tablet) 1 tab(s) Oral Daily Unchanged Losartan (losartan 100 mg oral tablet) 60 each, 0 Refill(s) ?? Unchanged Melatonin (Melatonin 3 mg oral tablet) 2 tab(s) Oral Daily at Bedtime Unchanged Metformin (metFORMIN 500 mg oral tablet) 1 tab(s) Oral Daily Unchanged Miscellaneous Rx (CALCIUM CITRATE D3 MAX TABLETS) TAKE 2 TABLETS BY MOUTH TWICE DAILY ?? Unchanged Montelukast (montelukast 10 mg oral tablet) 1 tab(s) Oral Daily Unchanged Mycophenolate Sodium (mycophenolic acid 360 mg oral delayed release tablet) 1 tab(s) Oral Twice a day Unchanged Rosuvastatin (rosuvastatin 20 mg oral tablet) 1 tab(s) Oral Daily Unchanged Tacrolimus (tacrolimus 1 mg oral capsule) 0.5 capsule Oral Every 12 hours Unchanged ValGANCiclovir (valganciclovir 450 mg oral tablet) 1 tab(s) Oral Two times a day with meals Unchanged Venlafaxine (venlafaxine 75 mg oral tablet) 1 tab(s) Oral Daily Duration: 90 Days Unchanged Vitamin E (vitamin E 400 iu oral capsule) 1 capsule Oral Daily Medications and Immunizations Administered Medications Given During Visit No medications given during this visit.?? Allergies (NKA means No Known Allergies) BuSpar Dividose??(chest pain,dizzy, headache, Buspar dividose 15mg tablet) busPIRone??(Unknown) lisinopril??(Persistent cough) Common Emergency Awareness Tips IS IT A STROKE? Act FAST and Check for these signs: FACE Does the face look uneven? ARM Does one arm drift down? SPEECH Does their speech sound strange? TIME Call at any sign of stroke ?? Heart Attack Signs Chest discomfort: Most heart attacks involve discomfort in the center of the chest and lasts more than a few minutes, or goes away and comes back. It can feel like uncomfortable pressure, squeezing, fullness or pain. Discomfort in upper body: Symptoms can include pain or discomfort in one or both arms, back, neck, jaw or stomach. Shortness of breath: With or without discomfort. Other signs: Breaking out in a cold sweat, nausea, or lightheaded. Remember, MINUTES DO MATTER. If you experience any of these heart attack warning signs, call to get immediate medical attention! ?? Smoking can increase your chances of developing chronic health problems and can cause harmful effects to other family members in your house. If you smoke, you are strongly encouraged to quit. Please call [employer] [facility] at [phone] or [phone] ([phone]) or log in to [email or web address] for referrals to smoking cessation programs. ?? The National Suicide Prevention Hotline is available 11/05 if you or someone you know needs to find a reason to keep living. By calling 1-279-066-Vital Access (9809) you'll be connected to a skilled, trained counselor at a crisis center in your area. [facility] Portal You can view and manage your care through the patient portal or by using a health care viviana of your choosing. [employer] is a website that allows you to securely view your medical information including your hospital discharge summary, office visit summaries, medications and follow-up visits. You can also request appointments, renew medications, and request access to your medical information using a health care viviana of your choosing, or just ask a question. You can enroll at [email or web address] or register during your next office visit. [facility], in keeping with [facility] guidance, no longer requires face masks for staff, patientsor visitors in most situations. Similiar to time spent indoors at other locations, there is the chance that you were exposed to repiratory viruses during your time with us (such as flu or COVID-19). If you develop symptoms concerning for a viral respiratory infection, please seek testing (and treatment if indicated) from your medical provider or home test kit. ?? Disclaimer: The information provided is of a general nature and is intended to be used in conjunction with the recommendations and advice of your health care practitioner. Every effort has been made to ensure that the information provided is accurate and complete at the time it is provided to you however, as your needs change, or, as new information becomes available, different or additional instructions may be required. ?? If you have questions, please consult with your primary care provider or pharmacist, as appropriate. This information is not intended to serve as substitution for assessment and evaluation by a qualified health care provider. If you do not have a primary care provider, you may find a [facility] provider by calling [facility] at [phone]. Patient Care team information Care Team Personnel Name: Jasmyne Cueva RN Position: [facility] RN Member Role: Primary Care Nurse Name: Ericka Salcedo RN Position: [facility] RN Member Role: Primary Care Nurse Name: Katrin Brian Position: [facility] RN Supv Member Role: Primary Care Nurse Name: Raissa Garcia NP Position: [facility] Associate Professional Member Role: [employer] Provider Address: [address] [place], [place] [address] [place] [place] [address]- Telecom: Name: Dena Gipson MD Position: [facility] Physician - Primary Care Member Role: PCP Address: [address] [place] [address] Adult & [place] [address]- [place] Telecom: Name: Hilda Levine RN Position: [facility] Hospital Breaker Table Worker Member Role: Primary Care Nurse Name: Mae Kaiser RN Position: [facility] RN Member Role: Primary Care Nurse Name: Jerrica Salinas RN Position: [facility] RN Member Role: Primary Care Nurse Name: Gerardo Petty RN Position: [facility] RN Member Role: Primary Care Nurse Name: Kamini Membreno RN Position: [facility] RN Member Role: Primary Care Nurse Name: Matthias Enamorado MD Position: S Outreach Member Role: [employer] Physician Address: [address] [facility] [facility] [address] [facility] [place] [address]- Telecom: Name: Kathy Rodney RN Position: [facility] SN RN Member Role: Primary Care Nurse Name: Huma Rogers RN Position: [facility] RN Member Role: Primary Care Nurse Name: Nirali Goodwin RN Position: [facility] RN Member Role: Primary Care Nurse Name: Blade DEAN, Ruth Cassidy Position: [facility] RN Member Role: Primary Care Nurse Care Team Related Persons Name: GEE RADFORD Name: JONATHAN RADFORD Insurance Providers Guarantor name: ANTONIO COSMEON Health Plan Information #: 1 Payer: NA Member Number: [id number] Policy Number: NA Group Number: [id number] Health Plan Information #: 2 Payer: NA Member Number: [id number] Policy Number: NA Group Number: [id number]
--- OUTSIDE RECORDS SUMMARY | 2024-10-10 13:37 | XMS_ITS | Continuity of Care Document ---
Author Organization [facility] Address [address] [address]- Care Team Providers Care Flatbed Driver Name Role Phone Dena Gipson MD Primary Care Physician [phone] [id number] Date(s): 08/31/24 - 09/30/24 [facility] [address] [place], [place] [address] Encounter Type: Triage Allergies, Adverse Reactions, [...] RSV vaccine preF3, recombinant 07/08/24 Recorded SARS-CoV-2(COVID-19)mRNA-LNP vac([id number]) 08/18/23 Recorded Hepatitis A-Hepatitis B Vaccine 08/11/21 [...] Vaccine (oldterm) 20 11/16/01 Given 1Result Comment: [facility] 60034-332-21 2[facility] 3Result Comment: [08/09/2018] [facility] 4Result Comment: [07/31/2017] [facility] [id number] 5Result Comment: [08/07/2016] given w/out incident waiver signed 6Admin Note: VIS dated 04/19/12 7Admin Note: vis 05/28/10 8Admin Note: VIS GIVEN, 05/29/2009 9Result Comment: [facility] 5676-9499-94 Pt tolerated vaccine without incident...NH 10Result Comment: [facility] [address]-0 Pt tolerated vaccine without incident..NH 11Admin Note: VIS 09/05/08 12Result Comment: Done at [facility] 13Result Comment: Administered at [facility] 14Admin Note: VIS GIVEN 05/03/2007 15Admin Note: vis given 04/17/06 16Result Comment: [04/15/2018] [facility] [id number] 17Admin Note: VIS 18Admin Note: vis 2007- [...] Refills, Maintenance, 03/18/24 5:59:00 PM EDT,[facility], [facility], 7, APPLY TOPICALLY TO [...] Refills, Maintenance, 12/03/23 5:02:00 PM EST, [facility]/pharmacy #[id number], 160.02, cm, 09/30/23 11:50:00 EST, Height, [...] Refills, Maintenance, 09/10/22 3:52:00 PM EST, Nasal [place], [facility]/pharmacy #[id number], Partial fill upon patient request if [...] Refills, Maintenance, 08/22/24 9:50:00 AM EST, [facility]/pharmacy #[id number], 160.02, cm, 08/02/24 10:22:00 EDT, Height, [...] 1 Refills, Maintenance, 05/20/24 7:13:00 AM EDT, [facility], 160.02, cm, 04/20/24 9:54:00 EDT, Height, 90, kg, 04/20/24 9:54:00 EDT, Dry Weight Start Date: 05/20/24 Status: Ordered Quantity: 90.0 Unit: tablet Repeat number: 1 montelukast 10 mg oral tablet 1, tablet, By Mouth, Daily, # 90 tablet, Refills 1, Maintenance, 06/02/24 8:22:00 AM EDT, Route to Pharmacy Electronically, [facility], 160.02, cm, 04/20/24 9:54:00 EDT, Height, 90, [...] Refills, Maintenance, 09/24/24 12:22:00 PM EST, [facility]/pharmacy #[id number], switched from 2x37.5 mg, 160.02, cm, [...] Primary Care Nurse Name: Katrin Brian Position: [facility] RN Supv Member Role: Primary Care Nurse Name: Raissa Garcia NP Position: [facility] Associate Professional Member Role: Lifetime Consulting Provider Address: [address] [facility] [place] [address]- [place] Telecom: Name: Dena Gipson MD Position: [facility] Physician - Primary Care Member Role: PCP Address: [address] [facility] [place] [address]- [place] Telecom: Name: Hilda Levine RN Position: [facility] Sanitation Director Member Role: Primary Care Nurse Name: Mae Kaiser RN Position: [facility] RN Member Role: Primary Care Nurse Name: Jerrica Salinas RN Position: [facility] RN Member Role: Primary Care Nurse Name: Gerardo Petty RN Position: [facility] RN Member Role: Primary Care Nurse Name: Kamini Membreno RN Position: [facility] RN Member Role: Primary Care Nurse Name: Matthias Enamorado MD Position: [facility] Outreach Member Role: Lifetime Consulting Physician Address: [address] [facility] [place] [address]- [place] Telecom: Name: Kathy Rodney RN Position: [facility] SN RN Member Role: Primary Care Nurse Name: Huma Rogers RN Position: [facility] RN Member Role: Primary Care Nurse Name: Nirali Goodwin RN Position: [facility] RN Member Role: Primary Care Nurse Name: Ruth Murguia RN Position: [facility] RN Member Role: Primary Care Nurse Care Team Related Persons Name: GEE RADFORD Name: JONATHAN RADFORD Insurance Providers Guarantor name: ANTONIO RADFORD Health Plan Information #: 1 Payer: NA Member Number: NA Policy Number: NA Group Number: NA
--- OUTSIDE RECORDS SUMMARY | 2024-10-10 13:37 | XMS_ITS | Continuity of Care Document ---
Author Organization [facility] Address [address] [address]- Care Team Providers Care Manager Of Clinical Name Role Phone Dena Gipson MD [id number] - 10/05/24 [facility] [address] [place], [place] [address] Encounter Type: Triage Allergies, Adverse [...] RSV vaccine preF3, recombinant 07/08/24 Recorded SARS-CoV-2(COVID-19)mRNA-LNP vac([id number]) 08/18/23 Recorded Hepatitis A-Hepatitis B Vaccine 08/11/21 [...] (oldterm) 20 11/16/01 Given 1Result Comment: [facility] [id number] 2Result Comment[facility] 3Result Comment: [[facility] 4Result Comment: [07/31/2017] [facility] 95028-948-06 5Result Comment: [08/07/2016] given w/out incident waiver signed 6Admin Note: VIS dated 04/19/12 7Admin Note: vis 05/28/10 8Admin Note: VIS GIVEN, 05/29/2009 9Result Comment: [facility] 9571-2422-27 Pt tolerated vaccine without incident...NH 10Result Comment: [facility] [address]-1 Pt tolerated vaccine without incident..NH 11Admin Note: VIS 09/05/08 12Result Comment: Done at [facility] 13Result Comment: Administered at [facility] 14Admin Note: VIS GIVEN 05/03/2007 15Admin Note: vis given 04/17/06 16Result Comment: [04/15/2018] [facility] [id number] 17Admin Note: VIS 18Admin Note: vis 2007- [...] 1:04:00 PM EST, Route to Pharmacy Electronically, [facility]/pharmacy #[id number], Partial fill upon patient request if the [...] 1 Refills, Maintenance, 10/04/24 11:32:00 AM EST, [facility]/pharmacy #0488, 7, APPLY TOPICALLY TO THE AFFECTED [...] 1 Refills, Maintenance, 12/03/23 5:02:00 PM EST, [facility]/pharmacy #0488, 160.02, cm, 09/30/23 [...] Refills, Maintenance, 09/10/22 3:52:00 PM EST, Nasal [place], [facility]/pharmacy #[id number], Partial fill upon [...] 1 Refills, Maintenance, 08/22/24 9:50:00 AM EST, [facility]/pharmacy #0488, 160.02, cm, 08/02/24 [...] 1 Refills, Maintenance, 05/20/24 7:13:00 AM EDT, [facility]92, 160.02, cm, 04/20/24 9:54:00 EDT, Height, 90, kg, 04/20/24 9:54:00 EDT, Dry Weight Start Date: 05/20/24 Status: Ordered Quantity: 90.0 Unit: tablet Repeat number: 1 montelukast 10 mg oral tablet 1, tablet, By Mouth, Daily, # 90 tablet, Refills 1, Maintenance, 06/02/24 8:22:00 AM EDT, Route to Pharmacy Electronically, [facility]184, 160.02, cm, 04/20/24 9:54:00 EDT, Height, 90, [...] 1 Refills, Maintenance, 09/24/24 12:22:00 PM EST, [facility]/pharmacy #0488, switched from 2x37.5 [...] Team Personnel Name: Jasmyne Cueva RN Position: [facility] RN Member Role: Primary Care Nurse Name: Ericka Salcedo RN Position: [facility] RN Member Role: Primary Care Nurse Name: Katrin Brian Position: [facility] RN Supv Member Role: Primary Care Nurse Name: Raissa Garcia NP Position: [facility] Associate Professional Member Role: Lifetime Consulting Provider Address: [address] [place] [address] [address] [facility] [place] [address]- [place] Telecom: Name: Dena Gipson MD Position: [facility] Physician - Primary Care Member Role: PCP Address: [address] [facility] [place] [address]- [place] Telecom: Name: Hilda Levine RN Position: [facility] Bar Supervisor Member Role: Primary Care Nurse Name: Mae Kaiser RN Position: [facility] RN Member Role: Primary Care Nurse Name: Jerrica Salinas RN Position: [facility] RN Member Role: Primary Care Nurse Name: Gerardo Petty RN Position: [facility] RN Member Role: Primary Care Nurse Name: Kamini Membreno RN Position: [facility] RN Member Role: Primary Care Nurse Name: Matthias Enamorado MD Position: [facility] Outreach Member Role: Lifetime Consulting Physician Address: [address] [facility] [address] [facility] [place] [address]- [place] Telecom: Name: Kathy Rodnye RN Position: [facility] RN Member Role: Primary Care Nurse Name: Huma [place] RN Position: [facility] RN Member Role: Primary Care [...]
--- OUTSIDE RECORDS SUMMARY | 2024-10-10 13:37 | XMS_ITS | Continuity of Care Document ---
Author Organization [facility] Address [address] [place] [address]- Care Team Providers Care Pool Attendant Name Role Phone Dena Gipson MD Primary Care Physician [phone] Encounter [facility] Date(s): 08/14/24 - 09/13/24 [facility] [address] [place], [place] [address] Encounter Type: Triage Allergies, Adverse Reactions, Alerts Substance Criticality Severity Reaction Reaction Severity Status lisinopril Persistent cough Ac tive BuSpar Dividose [...] RSV vaccine preF3, recombinant 07/08/24 Recorded SARS-CoV-2(COVID-19)mRNA-LNP vac([id number]) 08/18/23 Recorded Hepatitis A-Hepatitis B Vaccine 08/11/21 [...] (oldterm) 20 11/16/01 Given 1Result Comment: [facility] [id number] 2Result Comment: [facility] 3Result Comment: [[facility] 4Result Comment: [07/31/2017] [facility] [id number] 5Result Comment: [08/07/2016] given w/out incident waiver signed 6Admin Note: VIS dated 04/19/12 7Admin Note: vis 05/28/10 8Admin Note: VIS GIVEN, 05/29/2009 9Result Comment: [facility] [id number] Pt tolerated vaccine without incident...NH 10Result Comment: [facility] [address]-4 Pt tolerated vaccine without incident..NH 11Admin Note: VIS 09/05/08 12Result Comment: Done at [facility] 13Result Comment: Administered at [facility] 14Admin Note: VIS GIVEN 05/03/2007 15Admin Note: vis given 04/17/06 16Result Comment: [04/15/2018] [facility] [id number] 17Admin Note: VIS 18Admin Note: vis 2008-06 given 19Admin Note: VIS 02/01/09 20Admin Note: PER DR CHRISTY Medications Airsupra 90 mcg-80 mcg/inh inhalation aerosol 0 Refills, Maintenance, 08/02/24 11:07:00 AM EDT, Partial fill upon patient request if the prescription is for a schedule II opioid drug. Start Date: 08/02/24 Status: Ordered Repeat number: 1 aspirin 81 [...] Gm, 0 Refills, Maintenance, 03/18/24 5:59:00 PM EDT,[facility], [facility], 7, APPLY TOPICALLY TO THE [...] 1 Refills, Maintenance, 12/03/23 5:02:00 PM EST, [facility]/pharmacy #0488, 160.02, cm, 09/30/23 11:50:00 EST, Height, [...] Refills, Maintenance, 09/10/22 3:52:00 PM EST, Nasal [place], [id number], Partial fill upon patient request if [...] Date: 08/02/24 Status: Ordered Repeat number: 1 levothyroxine 125 mcg (0.125 mg) oral tablet 1 tablet, By Mouth, Daily, # 90 tablet, 1 Refills, Maintenance, 08/22/24 9:50:00 AM EST, [facility]/pharmacy #0488, 160.02, cm, 08/02/24 10:22:00 EDT, Height, 94.6, kg, 08/02/24 10:22:00 EDT, Dry Weight Start Date: 08/22/24 Status: Ordered Quantity: 90.0 Unit: tablet Repeat number: 2 Melatonin 3 mg oral tablet 2 tablet [...] 1 Refills, Maintenance, 05/20/24 7:13:00 AM EDT, [facility], 160.02, cm, 04/20/24 9:54:00 EDT, Height, 90, kg, 04/20/24 9:54:00 EDT, Dry Weight Start Date: 05/20/24 Status: Ordered Quantity: 90.0 Unit: tablet Repeat number: 1 montelukast 10 mg oral tablet 1, tablet, By Mouth, Daily, # 90 tablet, Refills 1, Maintenance, 06/02/24 8:22:00 AM EDT, Route to Pharmacy Electronically, [facility], 160.02, cm, 04/20/24 9:54:00 EDT, Height, 90, [...] tablet = 75 mg, By Mouth, Daily, for 90 days, # 90 tablet, 3 Refills, Hard Stop 09/24/24 12:22:00 PM EST, 09/30/23 12:22:00 PM EST, [facility]/pharmacy #0488, switched from 2x37.5 mg, 160.02, cm, 09/30/23 11:50:00 EST, Height, 84.4, kg, 09/30/23 11:50:00 EST, Dry Weight Start Date: 09/30/23 Stop Date: 09/24/24 Status: Ordered Quantity: 90.0 Unit: tablet Repeat number: 4 venlafaxine 75 mg oral tablet 1 tablet = 75 mg, By Mouth, Daily, # 90 tablet, 1 Refills, Maintenance, 09/24/24 12:22:00 PM EST, [facility]/pharmacy #0488, switched from 2x37.5 mg, 160.02, cm, [...] Team Personnel Name: Jasmyne Cueva RN Position: [facility] RN Member Role: Primary Care Nurse Name: Ericka Salcedo RN Position: [facility] RN Member Role: Primary Care Nurse Name: Katrin Brian Position: [facility] RN Supv Member Role: Primary Care Nurse Name: Raissa Garcia NP Position: [facility] Associate Professional Member Role: Lifetime Consulting Provider Address: [address] [place] [address] [address] [facility] [place] [address]- Telecom: Name: Dena Gipson MD Position: [facility] Physician - Primary Care Member Role: PCP Address: [facility] [place] [address]- Telecom: Name: Hilda Levine RN Position: [facility] Chemical Plant Operator Member Role: Primary Care Nurse Name: Mae Kaiser RN Position: [facility] RN Member Role: Primary Care Nurse Name: Jerrica Salinas RN Position: [facility] RN Member Role: Primary Care Nurse Name: Gerardo Petty RN Position: [facility] RN Member Role: Primary Care Nurse Name: Kamini Membreno RN Position: [facility] RN Member Role: Primary Care Nurse Name: Matthias Enamordao MD Position: [facility] Renal MD Member Role: Lifetime Consulting Physician Address: [address] [place] [address] [address] [facility] [place] [address]- Telecom: Name: Kathy Rodney RN Position: [facility] SN RN Member Role: Primary Care Nurse Name: Huma [place] RN Position: [facility] RN Member Role: Primary Care Nurse Name: Nirali Goodwin RN Position: [facility] RN Member Role: Primary Care Nurse Name: Ruth Murguia RN Position: [facility] RN Member Role: Primary Care Nurse Care Team Related Persons Name: GEE RADFORD Name: JONATHAN RADFORD Insurance Providers Guarantor name: ANTONIO RADFORD Health Plan Information #: 1 Payer: [employer] Member Number: NA Policy Number: NA Group Number: NA
--- NOTE | 2024-10-10 13:43 | A.OFFVIS_ITS ---
Vital Signs 10/10/24 13:45 Height 5 ft 5 in Weight 209 lb BMI 34.8 BP 150/70 H Blood Pressure Location Lt brachial Position Sitting Pulse 115 H Intake Visit Reasons: lipoma (R) leg Intake Note: Patient referred by Dr. Dupree for lipoma on Rt calf. Present for ? 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 He has had this several years time. It was markedly increasing in size, become more symptomatic. She would like to have removed. She has no such lesions elsewhere. Chart was reviewed and patient evaluated. Patient has a very interesting past medical history. She is status post cardiac transplant 3 years ago. 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 She is operative change with the latter. She would like to have this removed. Risks, benefits, and alternatives of large right posterior calf lipoma excision were reviewed with the patient and included but not limited to bleeding, infection, recurrence, numbness, pain, scarring, wound dehiscence, seroma formation and the patient wishes to proceed. All questions answered. Arrangements were made for this. Patient and do not have a list of the patient's medications and a will either call the office with these or bring a list to the office. Coding Level of Care Code New Pt Level 5 (15953) Diagnoses Lipomatosis gigantea E88.2
[2024-10-10 13:45] VITALS: BP 150/70; PULSE 115; BMI 34.8
== END 2024-10-10 13:51 | disposition home or self-care (01) ==
PROVIDERS: PCP Internal Medicine; Visit Provider Surgery
DX: E88.2 Lipomatosis, not elsewhere classified (principal)
CPT/HCPCS: 99205

== ENCOUNTER → 2024-10-10 13:31 | Outpatient (BNVA) | payer OTHER, MEDICARE, SELFPAY | PROVIDERS: PCP Internal Medicine; Visit Provider Surgery ==